=== PATIENT | female | born 2000 | race Caucasian/White ===

== ENCOUNTER 2022-08-03 22:43 | Observation (INO) | payer SELFPAY ==
[~2022-08-03] VITALS: Ht 160 cm; Wt 65.8 kg
[2022-08-03] MEDS ORDERED: LACTATED RINGERS 1,000 ML IV ONE (23:45)
[2022-08-04 00:30] LABS: CLARITY URINE CLEAR (CLEAR); COLOR URINE YELLOW (YELLOW); KETONES URINE NEGATIVE (NEGATIVE); LEUKOCYTE ESTERASE URINE 3+ (NEGATIVE); NITRITE URINE NEGATIVE (NEGATIVE); OCCULT BLOOD URINE NEGATIVE (NEGATIVE); PH URINE 7.5 (4.5-8.0); PROTEIN URINE NEGATIVE (NEGATIVE); SPECIFIC GRAVITY URINE 1.007 (1.005-1.030); UROBILINOGEN URINE 0.2 E.U./dL (0.2-1.0)
[2022-08-04] MEDS ORDERED: PNV1TABL76 PO (01:34)
[2022-08-04] MEDS ORDERED: TERBUTALINE SULFATE 1MG/ML VIAL SUBCUT ONE (03:30)
[2022-08-04] MEDS ORDERED: CEFAZOLIN 2,000 MG in DEXT 5% WATER 100 ML IV NR (04:00)
== END 2022-08-04 06:30 | disposition home or self-care (01) ==
LOC: 8 EST LDRP 22:43
PROVIDERS: ADMIT Obstetrics & Gynecology; ATTEND Obstetrics & Gynecology
DX: O26.893 Other specified pregnancy related conditions, third trimester (principal); R10.30 Lower abdominal pain, unspecified; O62.9 Abnormality of forces of labor, unspecified; Z3A.35 35 weeks gestation of pregnancy
CPT/HCPCS: 59025; 76805; 76818; 81003; 82731; 96361; 96372; 96374; G0378; J0690; J3105; J7060

== ENCOUNTER 2023-02-19 15:00 | Emergency (ER) | payer MEDICAID ==
[~2023-02-19] VITALS: Ht 160 cm; Wt 60.0 kg
[~2023-02-19 15:00] MED LIST: PNV1TABL76 PO
[2023-02-19] MEDS ORDERED: SODIUM CHLORIDE 0.9% 1,000 ML IV ONE (16:15)
[2023-02-19 16:35] LABS: BASOPHILS % 0.3 % (0.0-2.0); EOSINOPHILS % 2.6 % (0.0-5.0); HEMATOCRIT. 33.9 % (36.0-48.0); HEMOGLOBIN. 11.4 g/dL (12.0-16.0); LYMPHOCYTES % 26.2 % (20.0-50.0); MEAN CORPUSCULAR HEMOGLOBIN 26.7 pg (28.0-32.0); MEAN CORPUSCULAR VOLUME 79.3 fL (81.0-99.0); MEAN PLATELET VOLUME 6.7 fl (7.4-10.4); MONOCYTES % 5.4 % (2.0-8.0); NEUTROPHILS % 65.5 % (40.0-76.0); PLATELET 434 x1000/uL (130-400); RED BLOOD CELL COUNT 4.28 mill/uL (4.2-5.4); RED CELL DISTRIBUTION WIDTH 16.1 % (11.6-14.6)
[2023-02-19 17:15] LABS: HCG SCREEN NEGATIVE
[2023-02-19 17:28] LABS: CHLORIDE 108 mEq/L (98-107)
[2023-02-19 17:32] LABS: ETHANOL BLOOD < 10 mg/dL
[2023-02-19 22:52] LABS: CLARITY URINE CLOUDY (CLEAR); COLOR URINE YELLOW (YELLOW); KETONES URINE 2+ (NEGATIVE); LEUKOCYTE ESTERASE URINE TRACE (NEGATIVE); NITRITE URINE NEGATIVE (NEGATIVE); OCCULT BLOOD URINE NEGATIVE (NEGATIVE); PROTEIN URINE NEGATIVE (NEGATIVE); SPECIFIC GRAVITY URINE 1.018 (1.005-1.030)
[2023-02-19 23:02] LABS: *AMPHETAMINES SCREEN URINE NEGATIVE (NEGATIVE); *BARBITURATES SCREEN URINE NEGATIVE (NEGATIVE); *BENZODIAZEPINES SCREEN URINE NEGATIVE (NEGATIVE); *COCAINE SCREEN URINE NEGATIVE (NEGATIVE); CANNABINOID URINE SCREEN NEGATIVE (NEGATIVE); METHADONE URINE SCREEN NEGATIVE (NEGATIVE); OPIATES URINE SCREEN NEGATIVE (NEGATIVE); PHENCYCLIDINE URINE SCREEN NEGATIVE (NEGATIVE)
[2023-02-19] MEDS ORDERED: DIPHENHYDRAMINE 25MG CAPSULE PO NR (23:15)
[2023-02-19] MEDS ORDERED: ACETAMINOPHEN 325MG TABLET PO NR (23:15)
[2023-02-20 06:00] VITALS: BP 98/64
[2023-02-20] MEDS ORDERED: CLONIDINE 0.1MG TABLET PO ONE (10:00)
[2023-02-20] MEDS ORDERED: ONDANSETRON 4MG ODT PO ONE (10:00)
[2023-02-20] MEDS ORDERED: LORA-249 MT ×3 (12:14→12:17)
[2023-02-20] MEDS ORDERED: CLON0.1T MT ×3 (12:14→12:17)
[2023-02-20] MEDS ORDERED: ONDA4TAB11 PO ×3 (12:14→12:17)
== END 2023-02-20 11:40 | disposition left against medical advice (07) ==
LOC: ER 15:00
DX: T40.2X1A Poisoning by other opioids, accidental (unintentional), initial encounter (principal); X58.XXXA Exposure to other specified factors, initial encounter; Z20.822 Contact with and (suspected) exposure to COVID-19
CPT/HCPCS: 36415; 80053; 80305; 80307; 80320; 80329; 81003; 84703; 85025; 87426; 93005; 96360; 99285; C9803; J7030; Q0163; Z7610; G0480